=== PATIENT | female | born 1975 | race Caucasian/White ===

== ENCOUNTER 2016-12-11 13:44 | Emergency (ER) | payer SELFPAY ==
[2016-12-11] MEDS ORDERED: DIAZEPAM 5 MG TABLET ONE (15:09)
== END 2016-12-11 15:43 | disposition home or self-care (01) ==
LOC: ED 13:44
DX: F41.9 Anxiety disorder, unspecified (principal)

== ENCOUNTER 2016-12-12 00:38 | Emergency (ER) | payer SELFPAY ==
[2016-12-12] MEDS ORDERED: LORAZEPAM 1 MG TABLET ONE (02:23)
== END 2016-12-12 02:38 | disposition home or self-care (01) ==
LOC: ED 00:38
DX: F41.0 Panic disorder [episodic paroxysmal anxiety] (principal); F17.210 Nicotine dependence, cigarettes, uncomplicated
CPT/HCPCS: 99283 ×2; A9270